=== PATIENT | female | born 1980 | race Caucasian/White ===

== ENCOUNTER 2020-04-17 13:36 | Outpatient (CLI) | payer OTHER | END 2020-04-17 13:48 | disposition home or self-care (01) | LOC: NUCLEAR 13:36 | PROVIDERS: ATTEND Psychiatry & Neurology Pain Medicine | DX: R41.2 Retrograde amnesia (principal); G31.84 Mild cognitive impairment of uncertain or unknown etiology | CPT/HCPCS: 78803; A9557 ==

== ENCOUNTER 2020-07-28 08:15 | Inpatient (IN) | payer OTHER ==
[~2020-07-28] VITALS: Ht 165.1 cm; Wt 63.5 kg
[2020-08-07] MEDS ORDERED: POLY119PG PO (06:49)
[2020-08-07] MEDS ORDERED: IBUPROFEN800 MG PO (06:49)
[2020-08-07] MEDS ORDERED: NEURONTIN600 MG PO (06:49)
[2020-08-07] MEDS ORDERED: SIMETHICONE125 M1 PO (06:49)
== END 2020-08-07 08:24 | DRG 742 ==
LOC: O/R 08-04 05:40 → OB/GYN 08-04 05:40
PROVIDERS: ADMIT Obstetrics & Gynecology; ATTEND Obstetrics & Gynecology
PROC: 0UT70ZZ Resection of Bilateral Fallopian Tubes, Open Approach (ICD-10-PCS; 2020-08-04)
PROC: 0UT00ZZ Resection of Right Ovary, Open Approach (ICD-10-PCS; 2020-08-04)
PROC: 0UT90ZZ Resection of Uterus, Open Approach (ICD-10-PCS; principal; 2020-08-04 08:30)
DX: D25.1 Intramural leiomyoma of uterus (principal); D62 Acute posthemorrhagic anemia; N72 Inflammatory disease of cervix uteri; N80.0 Endometriosis of uterus; N80.1 Endometriosis of ovary; N80.8 Other endometriosis; Z20.828 Contact with and (suspected) exposure to other viral communicable diseases